=== PATIENT | male | born 1975 | race Hispanic/Latino ===

== ENCOUNTER 2017-06-09 23:25 | Emergency (ER) | payer OTHER ==
[2017-06-09] MEDS ORDERED: Ibuprofen 800 MG TAB ONE (23:40)
--- NOTE | 2017-06-10 07:41 | RAD ---
LEFT HAND 3 VIEWS: Date: 06/09/17 HISTORY: 41-year-old male with history of trauma, injury playing soccer earlier today. FINDINGS: Multiple metallic foreign bodies are noted in the soft tissues around the thumb and index finger. The se are work related and apparently had been present previously. There is a nondisplaced fracture through the distal radial metaphysis. This is an irregular fracture with transverse and vertical components, but no significant malalignment. No obvious extension into t he radiocarpal joint. IMPRESSION: Irregular distal radial metaphyseal fracture without malalignment or significant displacement. POS: [facility]
== END 2017-06-10 00:25 ==
LOC: NAV ERS 23:25
DX: S52.592A Other fractures of lower end of left radius, initial encounter for closed fracture (principal); W21.02XA Struck by soccer ball, initial encounter; Y93.66 Activity, soccer; Y92.149 Unspecified place in prison as the place of occurrence of the external cause
CPT/HCPCS: 29125